=== PATIENT | female | born 1940 | race Caucasian/White ===

== ENCOUNTER 2024-03-08 12:10 | Day surgery (SDC) | payer BC ==
[2024-03-03 12:35] LABS: BILIRUBIN,URINE NEGATIVE (Neg); CLARITY,URINE CLEAR (Clear); COLOR,URINE YELLOW (Yellow); GLUCOSE, URINE NEGATIVE (Neg); KETONES,URINE NEGATIVE (Neg); LEUKOCYTE ESTERASE ,URINE NEGATIVE (Neg); NITRITES, URINE NEGATIVE (Neg); OCCULT BLOOD,URINE NEGATIVE (Neg); PROTEIN,URINE NEGATIVE (Neg); UROBILINOGEN,URINE 0.2 E.U/dL (0.2-1.0)
[2024-03-03 12:37] LABS: UA COLLECTION TYPE VOIDED
[2024-03-03 12:50] LABS: BASOPHILS # (AUTO) 0.1 X10'3 (0-0.2); BASOPHILS % (AUTO) 0.6 % (0-1); EOSINOPHILS # (AUTO) 0.4 X10'3 (0-0.9); EOSINOPHILS % (AUTO) 3.4 % (0-6); LYMPHOCYTES # (AUTO) 2.5 X10'3 (1.1-4.8); LYMPHOCYTES % (AUTO) 23.6 % (21-51); MEAN CORPUSCULAR HEMOGLOBIN 33.1 PG (27.0-31.0); MEAN CORPUSCULAR HGB CONC 33.3 g/dL (33.0-36.5); MEAN CORPUSCULAR VOLUME 99.3 FL (78-98); MEAN PLATELET VOLUME 7.5 FL (7.4-10.4); MONOCYTES # (AUTO) 1.2 X10'3 (0-0.9); MONOCYTES % (AUTO) 11.8 % (2-12); NEUTROPHILS # (AUTO) 6.3 X10'3 (1.8-7.7); NEUTROPHILS % (AUTO) 60.6 % (42-75); PRE OP HEMOGLOBIN 14.3 g/dL (12.0-16.0); PRE OP PLATELET COUNT 314 X10'3 (140-440); PRE OP WHITE BLOOD COUNT 10.4 10'3 (4.8-10.8); RED BLOOD COUNT 4.33 X10'6 (4.20-5.60); RED CELL DISTRIBUTION WIDTH 13.9 % (11.5-14.5)
[2024-03-03 13:03] LABS: PRE OP PROTIME 10.4 SECONDS (9.0-12.0)
[2024-03-03 13:06] LABS: ALBUMIN 3.8 G/DL (3.4-5.0); ALKALINE PHOSPHATASE 69 IU/L (46-116); BLOOD UREA NITROGEN 18 MG/DL (7-18); CALCIUM 9.8 MG/DL (8.5-10.1); CHLORIDE 100 MMOL/L (99-107); CREATININE 0.75 MG/DL (0.40-0.90); PRE OP ALT 32 U/L (30-65); PRE OP ANION GAP 8 (8-16); PRE OP AST 19 U/L (10-37); PRE OP BILIRUB, TOTAL 0.3 MG/DL (0.0-1.0); PRE OP GLUCOSE 83 MG/DL (70-104); PRE OP SODIUM 137 MMOL/L (135-145); TOTAL PROTEIN 7.7 G/DL (6.4-8.2); eGFR 74 ML/MIN
[~2024-03-08] VITALS: Ht 160 cm; Wt 59.0 kg
[~2024-03-08 12:10] MED LIST: ASPI81TA44 PO; ATOR40TA PO; CLOP75TA15 PO; DOCUMENT DATE & TIME OF BETA-BLOCKER PO ONE; GLUC-237 PO; MULT-1141 PO; OMEG-182 PO; PROP10TA10 PO; [UNRECOGNIZED DRUG - CODE] PO; cefazolin 2gm/D5W 100mL 100 ML IV ONE; famotidine 20mg tablet PO ONE; ringers solution, lacted 1,000 ML IV SCH
[2024-03-08] MEDS: BUPIVAcaine 0.25% w/Epi /PF 30ml vial IJ ONE (16:36)
== END 2024-03-08 23:59 | disposition home or self-care (01) ==
LOC: PRE-OP 12:10
PROVIDERS: ATTEND Podiatrist Foot & Ankle Surgery
DX: T84.84XA Pain due to internal orthopedic prosthetic devices, implants and grafts, initial encounter (principal); X58.XXXA Exposure to other specified factors, initial encounter; Y93.89 Activity, other specified; Y92.89 Other specified places as the place of occurrence of the external cause; Y99.8 Other external cause status
CPT/HCPCS: 20680; 36415; 71046; 73620; 80053; 81003; 82948; 85025; 85610; 85730; J2250; J2704; J3010; J7030; J7120; L3260; Z7506; Z7512; 76000; A4215; A4618; A6253; A6449; A7000; J0690; S0020

== ENCOUNTER 2024-03-08 12:11 | Day surgery (SDC) | payer BC, MEDICARE ==
[2024-03-08] VITALS (8 sets, daily range): BP systolic 158–186; BP diastolic 75–90; PULSE 53–65; RESP 12–19; TEMP 99.2; O2SAT 94–98
[~2024-03-08] VITALS: Ht 160 cm; Wt 59.8 kg
[~2024-03-08 12:11] MED LIST changes: -DOCUMENT DATE & TIME OF BETA-BLOCKER PO ONE; -cefazolin 2gm/D5W 100mL 100 ML IV ONE; -famotidine 20mg tablet PO ONE; -ringers solution, lacted 1,000 ML IV SCH
[2024-03-08] MEDS: famotidine 20mg tablet PO ONE (12:48)
[2024-03-08] MEDS ORDERED: ringers solution, lacted 1,000 ML IV SCH ×2 (13:00→16:40)
[2024-03-08] MEDS: ceFAZolin/D5W- 1GM premix 50 ML IV ONE (13:46)
[2024-03-08] MEDS ORDERED: midazolam 1 mg/ML 2ml injection ONE (16:07)
[2024-03-08] MEDS ORDERED: propofol inj 20 ML IV ONE (16:07)
[2024-03-08] MEDS ORDERED: fentaNYL/PF 50MCG/1 ML 2ML syringe ONE (16:07)
[2024-03-08] MEDS ORDERED: cefazolin 2gm/D5W 100ml IV.soln IV ONE (16:12)
[2024-03-08] MEDS ORDERED: meperidine/PF 25mg/ml syringe IV PRN ×3 (16:40)
[2024-03-08] MEDS ORDERED: morphine 2 MG/ML inj. syringe IV PRN (16:40)
[2024-03-08] MEDS ORDERED: proCHLORperazine 10 MG/2 ml inj IV PRN (16:40)
[2024-03-08] MEDS ORDERED: morphine 4 MG/ML inj SYRINge IV PRN (16:40)
[2024-03-08] MEDS ORDERED: ondansetron/PF 4mg/2ml inj IV PRN (16:40)
== END 2024-03-08 17:49 | disposition home or self-care (01) ==
LOC: PAS 12:11
PROVIDERS: ATTEND Podiatrist Foot & Ankle Surgery
DX: T84.84XA Pain due to internal orthopedic prosthetic devices, implants and grafts, initial encounter (principal); I10 Essential (primary) hypertension; I25.119 Atherosclerotic heart disease of native coronary artery with unspecified angina pectoris; E78.5 Hyperlipidemia, unspecified; I25.2 Old myocardial infarction; M19.90 Unspecified osteoarthritis, unspecified site; Z86.73 Personal history of transient ischemic attack (TIA), and cerebral infarction without residual deficits; Z79.82 Long term (current) use of aspirin; Z79.899 Other long term (current) drug therapy; Z96.651 Presence of right artificial knee joint; Z96.649 Presence of unspecified artificial hip joint; Z98.41 Cataract extraction status, right eye; Z98.42 Cataract extraction status, left eye; Z98.890 Other specified postprocedural states; Y79.2 Prosthetic and other implants, materials and accessory orthopedic devices associated with adverse incidents; Y92.89 Other specified places as the place of occurrence of the external cause
CPT/HCPCS: J0665; J0690; 82948; J2250; J2704; J3010; S0020